=== PATIENT | female | born 1960 | race Caucasian/White ===

== ENCOUNTER 2017-04-06 06:29 | Emergency (ER) | payer OTHER ==
[~2017-04-06] VITALS: Ht 167.6 cm; Wt 81.6 kg
[2017-04-06 06:51] VITALS: BP_SYST 144
[2017-04-06] MEDS ORDERED: KETOROLAC TROMETHAMINE 60 MG/2 ML VIAL IM ONE (07:15)
[2017-04-06 07:55] VITALS: BP_SYST 140
== END 2017-04-06 07:55 | disposition home or self-care (01) ==
LOC: SED 06:29
DX: M77.8 Other enthesopathies, not elsewhere classified (principal)
CPT/HCPCS: 96372; 99283; J1885